=== PATIENT | male | born 1965 | race Caucasian/White ===

== ENCOUNTER 2020-01-08 14:12 | Outpatient (CLI) | payer BC, SELFPAY ==
--- NOTE | 2020-01-08 14:20 | XR_ITS ---
WS: [id number] Right hip, AP and frog-leg views, 01/08/2020 Clinical Data: hip Comparison: None. Findings: No fractures or dislocations are seen. The hip joint is intact. The soft tissues are not remarkable. The adjacent pelvis is normal. XR/XR hip RT 2-3V wo/w pel* [id number] Impression: Negative right hip.
== END 2020-01-08 14:13 | disposition home or self-care (01) ==
PROVIDERS: Family Provider Family Medicine; PCP Family Medicine; Visit Provider Family Medicine
DX: M16.11 Unilateral primary osteoarthritis, right hip (principal)
CPT/HCPCS: 73502

== ENCOUNTER 2020-03-15 14:54 | Outpatient (CLI) | payer BC, SELFPAY ==
--- NOTE | 2020-03-15 15:00 | CT_ITS ---
WS: [id number] CT LUMBAR SPINE TECHNIQUE: Noncontrast CT of the lumbar spine with coronal and sagittal reformatted images. CLINICAL INFORMATION: right hip pain COMPARISON: None. DLP: 2141.[address] scans at [facility] use at least one of these dose optimization techniques: automat ed exposure control; mA and/or kV adjustment per patient size (includes targeted exams where dose is matched to clinical indication); or iterative reconstruction. FINDINGS: Normal lumbar alignment. No acute compression. No high-grade central canal stenosis. L1-L2: Small right pericentral protrusion with mild central canal stenosis. Impingement right subarti cular recess. Disc material extends posterior to the L1 vertebral body. Impingement on the right suba rticular recess and traversing right L2 nerve root. L2-L3: No significant disc bulging. Mild right and no significant left foraminal narrowing. Spinal ca nal is patent. Mild facet arthropathy. L3-L4: Mild annular bulging with slight effacement of ventral thecal sac. Mild left and no significan t right foraminal narrowing. Moderate facet arthropathy. L4-L5: Small central left pericentral disc osteophyte protrusion. Impingement on the traversing L5 ne rve roots bilaterally. Mild central canal stenosis. Mild to moderate left and no significant right fo raminal narrowing. Moderate facet arthropathy. L5-S1: Small central disc protrusion with slight effacement of ventral thecal sac. Spinal canal and f oramen are patent. Mild facet arthropathy. Visualized pelvic bony structures: Normal. Paravertebral soft tissues: Normal. CT/CT lumbar spine wo con* [id number] IMPRESSION: 1. Right pericentral disc protrusion L1-2 extends posterior to the L1 vertebra l body. Mild central canal stenosis with impingement on traversing right L2 ner ve root. Mild to moderate foraminal narrowing at this level. 2. Mild central canal stenosis L3-L4. 3. Small central protrusion L4-5 with impingement on the traversing L5 nerve r oots bilaterally with mild central canal stenosis. 4. Small central disc protrusion L5-S1 with slight effacement of ventral theca l sac. 5. Mild left L3-4 and left L4-5 foraminal narrowing. 6. Moderate facet arthropathy L3-L4 and L4-5.
== END 2020-03-15 14:55 | disposition home or self-care (01) ==
LOC: RADWPI 14:58
PROVIDERS: Family Provider Family Medicine; PCP Family Medicine; Visit Provider Family Medicine
DX: M25.551 Pain in right hip (principal); M51.26 Other intervertebral disc displacement, lumbar region; M48.061 Spinal stenosis, lumbar region without neurogenic claudication; M47.816 Spondylosis without myelopathy or radiculopathy, lumbar region
CPT/HCPCS: 72131

== ENCOUNTER 2020-04-13 08:01 | Day surgery (SDC) | payer BC, SELFPAY ==
[2020-04-12 13:57] VITALS: BMI 26.6
[2020-04-13] MEDS: sodium chloride 0.9% 1,000 ML 30 ML IV (08:26)
--- NOTE | 2020-04-13 08:26 | ANES.PREANE2 ---
Pre-Anesthetic Assessment Pre-Anesthetic Assessment: Height/Weight: Height 1.96 m Weight 102.058 kg Preop Diagnosis: History of colon polyps Proposed Procedure: Operation Date: 04/13/20 09:15 Proposed Procedures p 15360 colonoscopy with possible biopsy, possible polypectomy Z086.010(Not Applicable) - Brendan Allen MD Familial anesthetic complications: None Was Beta Terence taken within 24 hours: N/A Last intake: Intake Last Liquid Date 04/12/20 Last Liquid Time 21:00 Last Solid Date 04/11/20 Social: Social History: No alcohol and No tobacco Exam: Pre-Anes Outpt Exam: alert, oriented x 3, clear to auscultation bilaterally and regular rate & rhythm Airway: Cervical ROM: WNL MP: 2 Dentition: Chipped Pulmonary: Comments: sarcoidosis in 90s CV/HEM: CV/HEM: None reported : : None reported Hepatic: Hepatic: None reported GI: GI: None reported Metabolic: Metabolic: None reported Musc/skel: Comments: R hip Neuropsych: Neuropsych: None reported Anesthetic Plan: ASA status: 1 Anesthesia: MAC Risk of > 500 ml blood loss (7ml/kg in children): No PFSH Anesthesia PFSH: Medical History History of colon polyps History of 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
[2020-04-13 08:27] VITALS: BP 128/72; PULSE 53; RESP 18; TEMP 35.9; O2SAT 93
--- NOTE | 2020-04-13 09:18 | W.PM.OPSFHP ---
Same Day Surgery H&P Indication for Procedure/HPI DATE OF PROCEDURE: April 13, 2020 CHIEF COMPLAINT/INDICATIONFOR SURGICAL PROCEDURE: history of colon polyps PREOP DIAGNOSIS: History of colon polyps PLANNED PROCEDRUE: Operation Date: 04/13/20 09:15 Proposed Procedures p 53270 colonoscopy with possible biopsy, possible polypectomy Z086.010(Not Applicable) - Brendan Allen MD Medications/Allergies* Home Medications Medication Instructions Recorded Confirmed Type No Known Home Medications 04/12/20 04/12/20 History Allergies/Adverse Reactions Allergy/AdvReac Type Severity Reaction Status Date / Time Iodinated Contrast Media Allergy NA Verified 03/17/20 07:56 sesame seed Allergy ANAPHYLAXIS Verified 03/17/20 07:56 Current Medications: Generic Name Dose Route Start Last Admin Trade Name Freq PRN Reason Stop Dose Admin Sodium Chloride 1,000 mls @ 30 mls/hr 04/13/20 08:15 04/13/20 08:26 Sodium Chloride 0.9% IV 30 mls/hr .Q24H TAMMY Administration Pertinent History/Comorbid Conditions* Medical History (Updated 03/15/20 @ 20:30 by Kate Krishnamurthy MD) History of colon polyps 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
[2020-04-13 09:44] VITALS: BP 103/59; PULSE 60; RESP 16; TEMP 36.2; O2SAT 90
[2020-04-13 09:54] VITALS: BP 106/71; PULSE 63; RESP 18; O2SAT 94
== END 2020-04-13 10:05 | disposition home or self-care (01) ==
PROVIDERS: PCP Family Medicine; Visit Provider Surgery
PROC: 0DJD8ZZ Inspection of Lower Intestinal Tract, Via Natural or Artificial Opening Endoscopic (ICD-10-PCS; CPT 45378; principal; 2020-04-13 09:15)
DX: K57.30 Diverticulosis of large intestine without perforation or abscess without bleeding (principal); K64.8 Other hemorrhoids; Z86.010 Personal history of colon polyps; Z86.718 Personal history of other venous thrombosis and embolism
CPT/HCPCS: 12345; 45378; J2704; J7030

== ENCOUNTER → 2020-04-14 16:01 | Outpatient (BNVA) | payer BC, SELFPAY | PROVIDERS: PCP Family Medicine; Visit Provider Internal Medicine | DX: D86.9 Sarcoidosis, unspecified (principal); M35.3 Polymyalgia rheumatica; M79.606 Pain in leg, unspecified | CPT/HCPCS: 36415; 80053; 81001; 82164; 85025; 85651; 86140; 99213 ==

== ENCOUNTER 2020-04-16 11:46 | Outpatient (CLI) | payer BC, SELFPAY ==
--- NOTE | 2020-04-16 12:00 | XR_ITS ---
WS: [id number] XR chest 2V insp/exp [id number] REASON FOR EXAM: followup sarcoidosis FINDINGS: The hilar areas are normal there is no lymphadenopathy and there is no peripheral lesions s een consistent with sarcoidosis. Lung rajan show no pneumonia, pleural effusion, pulmonary edema. There is mild pleural thickening in the right lateral upper chest. XR/XR chest 2V insp/exp [id number] IMPRESSION: No acute findings.
== END 2020-04-16 11:47 | disposition home or self-care (01) ==
LOC: RADWPI 11:49
PROVIDERS: Family Provider Family Medicine; PCP Family Medicine; Visit Provider Internal Medicine
DX: D86.9 Sarcoidosis, unspecified (principal)
CPT/HCPCS: 71046

== ENCOUNTER → 2020-04-21 11:36 | Outpatient (BNVA) | payer BC, SELFPAY | PROVIDERS: Family Provider Family Medicine; PCP Family Medicine; Visit Provider Internal Medicine | DX: E87.5 Hyperkalemia (principal) | CPT/HCPCS: 36415; 84132 ==

== ENCOUNTER 2021-01-17 14:47 | Outpatient (CLI) | payer BC, SELFPAY ==
--- NOTE | 2021-01-17 15:00 | US_ITS ---
WS: [id number] ULTRASOUND SOFT TISSUES cervical chains. HISTORY: cervical adenopathy: >on right than left COMPARISON: None available. TECHNIQUE: 2-D and color Doppler imaging is submitted. Bilateral cervical chain lymph nodes are identified. These lymph nodes appear normal. Normal size and central hilar vascularity. Normal central fatty hilum. No enlarged lymph nodes. Visualized submandib ular gland is normal. US/US soft tissue head neck [id number] IMPRESSION: Normal bilateral cervical chain lymph nodes by ultrasound.
== END 2021-01-17 14:48 | disposition home or self-care (01) ==
PROVIDERS: Family Provider Family Medicine; PCP Family Medicine; Visit Provider Family Medicine
DX: R59.0 Localized enlarged lymph nodes (principal)
CPT/HCPCS: 76536

== ENCOUNTER 2021-03-10 08:54 | Outpatient (CLI) | payer BC, SELFPAY ==
--- NOTE | 2021-03-10 09:15 | FL_ITS ---
WS: [id number] ESOPHAGRAM TECHNIQUE: Double contrast examination was performed with thin and thick barium. Upright and AQUINO imag es were obtained. CLINICAL INFORMATION: DYSPHAGIA Fluoroscopy time: 2.9 minutes. COMPARISON: None. FINDINGS: Swallowing: No evidence of aspiration or penetration Esophagus: Mild esophageal dysmotility. Moderate reflux is visualized to the mid and upper esophagus. Delayed transit of the barium tablet in the midesophagus with reproduction of patient's symptoms. Th is cleared with additional water. No evidence of high-grade stricture or obstructing mass. Small esophageal hiatal hernia with Schatzki's ring measuring approximately 13.2 mm in the distal eso phagus. No delay of the barium tablet (13mm) in this area. Gastroesophageal reflux: Moderate FL/FL barium swallow 51533 IMPRESSION: 1. No evidence of aspiration/penetration. 2. Mild esophageal dysmotility with moderate reflux to the mid and upper thora cic esophagus 3. Small esophageal hiatal hernia with Schatzki's ring measuring approximately 13.2 mm in the distal esophagus. (<13 mm consider symptomatic). This also like ly contributes to patient's dysphagia and could be further evaluated with endos copy. No delay of the barium tablet (13mm) in this area. 4. Delayed transit of the barium tablet in the midesophagus with reproduction of patient's symptoms related to esophageal spasm. This cleared with additional water ingestion. No high-grade stricture.
== END 2021-03-10 08:55 | disposition home or self-care (01) ==
PROVIDERS: PCP Family Medicine; Visit Provider Family Medicine
DX: R13.10 Dysphagia, unspecified (principal); K44.9 Diaphragmatic hernia without obstruction or gangrene; K22.2 Esophageal obstruction
CPT/HCPCS: 74220

== ENCOUNTER → 2021-03-31 13:35 | Outpatient (BNVA) | payer BC, SELFPAY | PROVIDERS: PCP Family Medicine; Visit Provider Internal Medicine | DX: Z11.52 Encounter for screening for COVID-19 (principal); Z20.822 Contact with and (suspected) exposure to COVID-19; R13.10 Dysphagia, unspecified; D86.9 Sarcoidosis, unspecified; M79.662 Pain in left lower leg; Z79.899 Other long term (current) drug therapy | CPT/HCPCS: 87635; 99214 ==

== ENCOUNTER 2021-04-05 08:16 | Day surgery (SDC) | payer BC, SELFPAY ==
[2021-04-04 09:03] VITALS: BMI 27.2
--- NOTE | 2021-04-05 08:49 | ANES.PREANE2 ---
Pre-Anesthetic Assessment Pre-Anesthetic Assessment: Height/Weight: Height 1.96 m Weight 104.326 kg Preop Diagnosis: upper gi symptoms Proposed Procedure: Operation Date: 04/05/21 09:45 Proposed Procedures p EGD Dilation W/ Balloon r13.10 06642(Not Applicable) - Brendan Allen MD Familial anesthetic complications: none Was Beta Terence taken within 24 hours: N/A Was Clonidine taken within 24 hours: N/A Last Intake: 23:00 Social: Social History: Alcohol (2-3 beer daily) and No tobacco Exam: Pre-Anes Outpt Exam: alert, oriented x 3, clear to auscultation bilaterally and regular rate & rhythm Airway: Submandibular: WNL Cervical ROM: WNL MP: 2 Dentition: Full Pulmonary: Comments: hx trach as child CV/HEM: CV/HEM: DVT (2019. 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
[2021-04-05 09:15] VITALS: BP 117/78; PULSE 97; RESP 18; TEMP 36.7; O2SAT 95
[2021-04-05] MEDS: sodium chloride 0.9% 1,000 ML 30 ML IV (09:33)
[2021-04-05 09:47] VITALS: BP 117/73; PULSE 60; RESP 18; TEMP 36.1; O2SAT 96
[2021-04-05 10:07] VITALS: BP 117/93; PULSE 95; RESP 18; O2SAT 94
--- NOTE | 2021-04-05 21:22 | ANE.PACU2 ---
Inpatient post-anesthesia follow up: Airway intact: Yes Vital signs: Temperature 97.0 F Pulse Rate 95 Respiratory Rate 18 Blood Pressure 117/93 Pulse Oximetry 94 Oxygen Delivery Me thod Oxygen Flow Rate Fraction of Inspir ed Oxygen Hydration adequate: Yes Nausea and vomiting: No Pain level: 2 Mental status: Baseline
--- NOTE | 2021-04-06 14:32 | W.PM.OPSUD ---
Surgery/Procedure H&P Update DATE OF PROCEDURE: April 05, 2021 DATE H&P PERFORMED: 03/25/21 H&P UPDATE INFORMATION: I have reviewed H&P completed within last 30 days, I have examined patient prior to procedure and No changes to prior documentation PREOP DIAGNOSIS: upper gi symptoms PLANNED PROCEDURE: Operation Date: 04/05/21 09:45 Proposed Procedures p EGD Dilation W/ Balloon r13.10 01293(Not Applicable) - Brendan Allen MD
== END 2021-04-05 10:18 | disposition home or self-care (01) ==
PROVIDERS: PCP Family Medicine; Visit Provider Surgery
PROC: 0DJ08ZZ Inspection of Upper Intestinal Tract, Via Natural or Artificial Opening Endoscopic (ICD-10-PCS; CPT 43235; principal; 2021-04-05 09:45)
DX: R13.10 Dysphagia, unspecified (principal); R10.30 Lower abdominal pain, unspecified; K20.90 Esophagitis, unspecified without bleeding; Z86.718 Personal history of other venous thrombosis and embolism; Z86.010 Personal history of colon polyps; K21.9 Gastro-esophageal reflux disease without esophagitis
CPT/HCPCS: 43239; 88305; J7030

== ENCOUNTER 2021-04-15 14:16 | Outpatient (CLI) | payer BC, SELFPAY ==
--- NOTE | 2021-04-15 14:29 | XR_ITS ---
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 The lungs are clear otherwise. No mass or nodule. No effusions. Cardiac size: Normal. Mediastinum/Aorta: Normal mediastinum. Bones: Normal. XR/XR chest 2V* [id number] IMPRESSION: Stable chest. No acute cardiopulmonary findings. No mediastinal widening.
== END 2021-04-15 14:17 | disposition home or self-care (01) ==
PROVIDERS: PCP Family Medicine; Visit Provider Internal Medicine
DX: Z79.899 Other long term (current) drug therapy (principal); D86.9 Sarcoidosis, unspecified
CPT/HCPCS: 71046

== ENCOUNTER → 2021-05-19 13:02 | Outpatient (BNVA) | payer BC, SELFPAY | PROVIDERS: PCP Family Medicine; Visit Provider Internal Medicine | DX: D86.9 Sarcoidosis, unspecified (principal); M16.11 Unilateral primary osteoarthritis, right hip; Z79.899 Other long term (current) drug therapy | CPT/HCPCS: 80053; 81003; 85025; 85651; 86140 ==

== ENCOUNTER 2022-07-12 07:24 | Outpatient (CLI) | payer BC, SELFPAY ==
--- NOTE | 2022-07-12 08:19 | XRR_ITS ---
PROCEDURE INFORMATION: Exam: XR Right Shoulder Exam date and time: 07/12/2022 8:25 AM Age: 56 years old Clinical indication: Pain; Shoulder; Bilateral; Additional info: Worsening pain right shoulder TECHNIQUE: Imaging protocol: Radiologic exam of the Right shoulder. Views: 2 or more views. COMPARISON: CR XR chest 2V* [id number] 04/15/2021 2:35 PM FINDINGS: Bones/joints: The glenohumeral and acromioclavicular joints are normally aligned. No acute fracture is seen. Lungs: Visualized portions of the chest are normal. Soft tissues: Unremarkable. XR/XR shoulder RT min 2V* [id number] IMPRESSION: 1. No evidence of acute fracture or dislocation. 2. No significant degenerative changes.
--- NOTE | 2022-07-12 08:19 | XRR_ITS ---
PROCEDURE INFORMATION: Exam: XR Left Shoulder Exam date and time: 07/12/2022 8:25 AM Age: 56 years old Clinical indication: Pain; Shoulder; Bilateral; Additional info: Worsening pain in shoulder TECHNIQUE: Imaging protocol: Radiologic exam of the Left shoulder. Views: 2 or more views. COMPARISON: CR XR chest 2V* [id number] 04/15/2021 2:35 PM FINDINGS: Bones/joints: The glenohumeral and acromioclavicular joints are normally aligned. No acute fracture is seen. Lungs: Postsurgical changes in the left lung again noted. Soft tissues: Unremarkable. XR/XR shoulder LT min 2V* [id number] IMPRESSION: 1. No evidence of acute fracture or dislocation. 2. No significant degenerative changes.
== END 2022-07-12 07:25 | disposition home or self-care (01) ==
PROVIDERS: PCP Family Medicine; Visit Provider Family Medicine
DX: M19.011 Primary osteoarthritis, right shoulder (principal); M19.012 Primary osteoarthritis, left shoulder
CPT/HCPCS: 73030

== ENCOUNTER 2022-12-22 15:11 | Outpatient (CLI) | payer BC, SELFPAY ==
--- NOTE | 2022-12-22 15:15 | USCV_ITS ---
Jeancarlos Marquez Age: 57 Gender: M : 1965 Exam Date: 12/22/2022 15:25 Ordering Phys: Kate Krishnamurthy MD Technologist: CT Exam Location: [facility] [place] Indication: swelling/pain PROCEDURES: The venous duplex Doppler examination of both lower extremities was performed in the standard fashion. Bilaterally, the common femoral, superficial femoral, profunda femoral, popliteal, posterior tibial, greater saphenous veins, and the peroneal trunk were identified and interrogated in the standard fashion. These veins were found to be easily compressible with spontaneous blood flow. No evidence of insufficiency or thrombus noted. In addition, the posterior tibial and peroneal trunk were evaluated. FINDINGS: normal us CONCLUSIONS No evidence of right lower extremity DVT. No evidence of left lower extremity DVT. Jason Buckner MD (Electronically Signed) Final Date: 22 December 2022 16:21 S
== END 2022-12-22 15:12 | disposition home or self-care (01) ==
PROVIDERS: PCP Family Medicine; Visit Provider Family Medicine
DX: I87.2 Venous insufficiency (chronic) (peripheral) (principal); Z86.718 Personal history of other venous thrombosis and embolism; M79.89 Other specified soft tissue disorders
CPT/HCPCS: 93970

== ENCOUNTER 2023-03-07 14:21 | Outpatient (CLI) | payer BC, SELFPAY ==
[2023-03-07 15:34] LABS: Basophils % 0.6 %; Eosinophils # 0.2 10^3/uL (0.0-0.8); Eosinophils % 2.6 %; Hemoglobin 14.1 g/dL (11.7-16.6); Lymphocytes # 1.3 10^3/uL (0.8-4.8); Lymphocytes % 20.1 %; Mean Corpuscular HGB Conc 32.8 g/dL (30.0-36.0); Mean Corpuscular Volume 94.5 fl (80-94); Mean Platelet Volume 9.1 fL (7.4-10.4); Monocytes # 0.5 10^3/uL (0.2-0.9); Monocytes % 7.3 %; Neutrophils # 4.44 10^3/uL (1.8-7.7); Neutrophils % 69.1 %; Nucleated Red Blood Cells % 0 %; Platelet Count 215 10^3/cmm (130-400); Red Blood Count 4.55 10^6/uL (4.1-5.3); Red Cell Distribution Width 12.3 % (12.1-15.1); White Blood Count 6.4 10^3/uL (4.0-10.0)
[2023-03-07 15:37] LABS: Erythrocyte Sedimentation Rate 6 mm/hr (0-10)
[2023-03-07 16:03] LABS: Alanine Aminotransferase 24 U/L (0-41); Albumin Level 4.1 g/dL (3.5-5.2); Alkaline Phosphatase 72 U/L (40-130); Anion Gap 14.4 (5-19); Aspartate Amino Transferase 22 U/L (0-40); Blood Urea Nitrogen 13 mg/dL (6-20); C Reactive Protein 4.4 mg/L (0.0-4.9); Calcium 8.7 mg/dL (8.5-10.5); Carbon Dioxide 26 mmol/L (22-29); Chloride 103 mmol/L (98-107); Glomerular Filtration Rate 98.9 mL/min (90-130); Glucose 111 mg/dL (65-115); Osmolality Calculated 289 mOsm/kg (285-295); Potassium 4.4 mmol/L (3.5-5.1); Sodium 139 mmol/L (136-145); Total Bilirubin 0.3 mg/dL (0.15-1.2); Total Protein 7.1 g/dL (6.6-8.7)
== END 2023-03-07 14:22 | disposition home or self-care (01) ==
PROVIDERS: PCP Family Medicine; Visit Provider Internal Medicine
DX: M16.11 Unilateral primary osteoarthritis, right hip (principal)
CPT/HCPCS: 80053; 85025; 85651; 86140

== ENCOUNTER 2023-03-28 13:52 | Outpatient (CLI) | payer BC, SELFPAY ==
--- NOTE | 2023-03-28 14:00 | USCV_ITS ---
Jeancarlos Marquez Age: 57 Gender: M : 1965 Exam Date: 03/28/2023 14:13 Ordering Phys: Merary Back MD Technologist: Kdae Jain [place] [facility] [place] LE Pain RIGHT LEFT Brachial 135.00 mmHg Brachial 124.00 mmHg Pressure (mmHg) Waveform Pressure (mmHg) Waveform 161.00 PULP GRINDER AND BLENDER 165.00 149.00 DPA 145.00 1.19 Ankle/Brachial Index 1.22 98.00 Pre-Exercise Toe Pressure 105.00 0.73 Pre-Exercise Toe/Brachial Index 0.78 FINDINGS Resting WINSOME of 1.19 on the right and 1.22 on the left Resting TBI of 0.73 on the right and 0.78 on the left CONCLUSIONS Normal resting ABIs and TBIs bilaterally No evidence of any significant arterial obstruction, based on the above findings. Dr Nic Jaime MD [facility] (Electronically Signed) Final Date: 24 April 2023 09:34 S
== END 2023-03-28 13:53 | disposition home or self-care (01) ==
PROVIDERS: PCP Family Medicine; Visit Provider Internal Medicine
DX: M79.606 Pain in leg, unspecified (principal); D86.9 Sarcoidosis, unspecified; M47.816 Spondylosis without myelopathy or radiculopathy, lumbar region; Z86.718 Personal history of other venous thrombosis and embolism
CPT/HCPCS: 36415; 71046; 72100; 81003; 82607; 84425; 84443; 86003; 86008; 86160; 86162; 86235; 86255; 86376; 86618; 86666; 86757; 93922

== ENCOUNTER → 2023-06-05 16:40 | Outpatient (BNVA) | payer BC, SELFPAY | PROVIDERS: PCP Family Medicine; Visit Provider Internal Medicine | DX: J34.2 Deviated nasal septum (principal); D86.9 Sarcoidosis, unspecified; M79.606 Pain in leg, unspecified; Z91.018 Allergy to other foods | CPT/HCPCS: 36415; 80053; 81003; 84443; 85025; 85651 ==

== ENCOUNTER → 2023-11-14 11:35 | Outpatient (BNVA) | payer BC, SELFPAY | PROVIDERS: PCP Family Medicine; Visit Provider Internal Medicine | DX: D86.9 Sarcoidosis, unspecified (principal); Z86.718 Personal history of other venous thrombosis and embolism; M75.101 Unspecified rotator cuff tear or rupture of right shoulder, not specified as traumatic; R13.10 Dysphagia, unspecified; M51.06 Intervertebral disc disorders with myelopathy, lumbar region; M16.11 Unilateral primary osteoarthritis, right hip; R21 Rash and other nonspecific skin eruption; Z91.018 Allergy to other foods; Z86.010 Personal history of colon polyps | CPT/HCPCS: 36415; 80053; 81003; 82550; 82784; 83516; 84100; 84439; 84443; 85025; 85651; 86036; 86140; 86160; 86162; 86235; 86255; 86376 ==

== ENCOUNTER → 2024-06-16 15:35 | Outpatient (BNVA) | payer BC, SELFPAY | PROVIDERS: PCP Family Medicine; Visit Provider Family Medicine | DX: R79.89 Other specified abnormal findings of blood chemistry (principal) | CPT/HCPCS: 84403; G0103 ==

== ENCOUNTER 2024-06-18 12:56 | Outpatient (CLI) | payer BC, SELFPAY ==
--- NOTE | 2024-06-18 13:03 | XR_ITS ---
WS: [id number] CHEST 2 VIEWS HISTORY: surveilance: hx sarcoidosis COMPARISON: 03/20/2023 Lungs: Lungs are clear with the exception of a thin linear scar in the lingula or at the LEFT lung ba se. Surgical clip projects over the LEFT upper lobe. No pneumonia. Cardiac size: Normal. Mediastinum/Aorta: No mediastinal widening. No fullness in the hilar regions. Bones: Normal. XR/XR chest 2V* [id number] IMPRESSION: Stable chest. No acute findings. No hilar adenopathy.
== END 2024-06-18 12:57 | disposition home or self-care (01) ==
LOC: RAD 13:00
PROVIDERS: PCP Family Medicine; Visit Provider Family Medicine
DX: D86.9 Sarcoidosis, unspecified (principal)
CPT/HCPCS: 71046

== ENCOUNTER 2025-03-26 14:52 | Outpatient (CLI) | payer BC, SELFPAY ==
--- NOTE | 2025-03-26 15:00 | USR_ITS ---
PROCEDURE INFORMATION: Exam: US Scrotum Exam date and time: 03/26/2025 2:59 PM Age: 59 years old Clinical indication: Other: Lump; Additional info: Lump lower left scrotum x 3 weeks TECHNIQUE: Imaging protocol: Real-time ultrasound of the scrotum and contents with color Doppler and image documentation. COMPARISON: CT lumbar spine wo con* [id number] 03/15/2020 3:11 PM FINDINGS: Right testicle: Normal. No mass. Normal color Doppler and arterial waveforms. No torsion. Left testicle: Normal. No mass. Normal color Doppler and arterial waveforms. No torsion. Epididymides: Normal. Scrotum/soft tissues: Normal. No hydroceles. US/US scrotum [id number] IMPRESSION: No evidence of testicular mass.
== END 2025-03-26 14:53 | disposition home or self-care (01) ==
PROVIDERS: PCP Family Medicine; Visit Provider Family Medicine
DX: N50.3 Cyst of epididymis (principal)
CPT/HCPCS: 76870